=== PATIENT | female | born 1945 | race Two or more races ===

== ENCOUNTER 2020-07-01 12:01 | Outpatient (CLI) | payer OTHER ==
[~2020-07-01] VITALS: Ht 157.5 cm; Wt 57.2 kg
[2020-07-01] MEDS ORDERED: LOSARTAN POTASS25 MG (12:05)
[2020-07-01] MEDS ORDERED: PLAVIX75 MG (12:06)
[2020-07-01] MEDS ORDERED: AMLODIPINE BESYL5 MG (12:06)
[2020-07-01] MEDS ORDERED: ROSUVASTATIN CAL5 MG (12:06)
[2020-07-01] MEDS ORDERED: IBANDRONATE SO150 MG (12:07)
[2020-07-05] MEDS ORDERED: CRESTOR20 MG PO (09:26)
[2020-07-05] MEDS ORDERED: OMEPRA PO (09:26)
[2020-07-05] MEDS ORDERED: FAM PO (09:27)
== END 2020-07-01 18:59 | disposition home or self-care (01) ==
LOC: OFIC 805 12:01
PROVIDERS: ATTEND Otolaryngology
DX: R49.0 Dysphonia (principal); J38.1 Polyp of vocal cord and larynx

== ENCOUNTER 2020-07-12 05:36 | Day surgery (SDC) | payer OTHER ==
[~2020-07-12 05:36] MED LIST: AMLODIPINE BESYL5 MG; CRESTOR20 MG PO; FAM PO; IBANDRONATE SO150 MG; LOSARTAN POTASS25 MG; OMEPRA PO; PLAVIX75 MG; ROSUVASTATIN CAL5 MG
== END 2020-07-12 11:45 | disposition home or self-care (01) ==
LOC: CIR.AMB 05:36
PROVIDERS: ATTEND Otolaryngology
DX: D02.0 Carcinoma in situ of larynx (principal); J38.3 Other diseases of vocal cords; Z20.828 Contact with and (suspected) exposure to other viral communicable diseases

== ENCOUNTER 2020-07-21 15:43 | Outpatient (CLI) | payer OTHER | END 2020-07-21 16:16 | disposition home or self-care (01) | LOC: OFIC 805 15:43 | PROVIDERS: ATTEND Otolaryngology | DX: J38.1 Polyp of vocal cord and larynx (principal); R49.0 Dysphonia; C32.8 Malignant neoplasm of overlapping sites of larynx ==

== ENCOUNTER 2020-08-02 07:24 | Outpatient (CLI) | payer OTHER | END 2020-08-02 10:08 | disposition home or self-care (01) | LOC: NUCLEAR 07:24 | PROVIDERS: ATTEND Otolaryngology | DX: C32.8 Malignant neoplasm of overlapping sites of larynx (principal) | CPT/HCPCS: 78815; A9552 ==

== ENCOUNTER → 2020-08-11 | Outpatient (CLI) | payer OTHER | END | disposition home or self-care (01) | LOC: OFIC 805 15:29 | PROVIDERS: ATTEND Otolaryngology | DX: R49.0 Dysphonia (principal); C32.8 Malignant neoplasm of overlapping sites of larynx ==

== ENCOUNTER 2020-09-09 15:51 | Outpatient (CLI) | payer OTHER | END 2020-09-09 16:00 | disposition home or self-care (01) | LOC: OFIC 805 15:51 | PROVIDERS: ATTEND Otolaryngology | DX: R49.0 Dysphonia (principal); C32.8 Malignant neoplasm of overlapping sites of larynx ==

== ENCOUNTER 2020-09-20 08:32 | Outpatient (CLI) | payer OTHER | END 2020-09-20 08:39 | disposition home or self-care (01) | LOC: SONOGRAMA 08:32 | PROVIDERS: ATTEND Otolaryngology | DX: E04.1 Nontoxic single thyroid nodule (principal) ==

== ENCOUNTER → 2020-09-23 | Outpatient (CLI) | payer OTHER | END | disposition home or self-care (01) | LOC: OFIC 805 14:21 | PROVIDERS: ATTEND Otolaryngology | DX: D02.0 Carcinoma in situ of larynx (principal); R49.0 Dysphonia; J38.1 Polyp of vocal cord and larynx ==

== ENCOUNTER → 2020-09-28 | Outpatient (CLI) | payer OTHER | END | disposition home or self-care (01) | LOC: OFIC 805 15:36 | PROVIDERS: ATTEND Otolaryngology | DX: D02.0 Carcinoma in situ of larynx (principal); R49.0 Dysphonia ==

== ENCOUNTER 2021-07-27 08:05 | Outpatient (CLI) | payer OTHER | END 2021-07-27 08:11 | disposition home or self-care (01) | LOC: PPH VACUNA 08:05 | PROVIDERS: ATTEND Emergency Medicine Pediatric Emergency Medicine | DX: Z23 Encounter for immunization (principal) ==

== ENCOUNTER 2022-04-02 09:34 | Emergency (ER) | payer OTHER ==
[~2022-04-02] VITALS: Ht 157.5 cm; Wt 59.0 kg
[2022-04-02] MEDS ORDERED: OMEPRAZOLE20 MG PO (09:54)
== END 2022-04-02 11:32 | disposition home or self-care (01) ==
LOC: ER 09:34
DX: S60.021A Contusion of right index finger without damage to nail, initial encounter (principal); W45.0XXA Nail entering through skin, initial encounter; Y93.9 Activity, unspecified; Y92.9 Unspecified place or not applicable; Z88.6 Allergy status to analgesic agent

== ENCOUNTER 2022-10-26 18:11 | Emergency (ER) | payer OTHER ==
[~2022-10-26] VITALS: Ht 162.6 cm; Wt 77.1 kg
[~2022-10-26 18:11] MED LIST changes: +OMEPRAZOLE20 MG PO
== END 2022-10-26 21:35 | disposition home or self-care (01) ==
LOC: ER 18:11
DX: U07.1 COVID-19 (principal); Z88.6 Allergy status to analgesic agent

== ENCOUNTER 2024-01-20 11:00 | Emergency (ER) | payer OTHER ==
[~2024-01-20] VITALS: Ht 160 cm; Wt 58.1 kg
[2024-01-20 13:07] LABS: HEMOGLOBIN 13.3 g/dL (12.0-15.00); MEAN CORPUSCULAR HEMOGLOBIN 31.5 pg (27.00-32.0); MEAN CORPUSCULAR HGB CONC 34.2 g/dl (32.0-36.0); PLATELET COUNT 276 K/uL (150-450); RED BLOOD COUNT 4.24 M/uL (4.00-6.00); RED CELL DISTRIBUTION WIDTH 13.5 % (11.5-14.5)
[2024-01-20 13:17] LABS: ERYTHROCYTE SEDIMENTATION RATE 22 mm/hr
[2024-01-20 13:32] LABS: CALCIUM 9.6 mg/dL (8.5-10.1); CREATININE SERUM 0.85 mg/dL (0.55-1.02); GFR 64.68; POTASSIUM 4.49 mEq/L (3.5-5.1)
[2024-01-20] MEDS ORDERED: CEFTRIAXONE SODIUM 1,000 MG VIAL IM STA (13:47)
[2024-01-20] MEDS ORDERED: DEXAMETHASONE SODIUM PHOSPHATE 4 MG/ML VIAL IM STA (13:49)
== END 2024-01-20 14:03 | disposition home or self-care (01) ==
LOC: ER 11:00
PROVIDERS: General Practice
DX: M25.472 Effusion, left ankle (principal); M25.572 Pain in left ankle and joints of left foot; R60.0 Localized edema; Z88.6 Allergy status to analgesic agent
CPT/HCPCS: 36415; 96372; 99282; J0696; J1100

== ENCOUNTER 2024-05-30 14:54 | Emergency (ER) | payer OTHER ==
[~2024-05-30] VITALS: Ht 157.5 cm; Wt 57.2 kg
[2024-05-30] MEDS ORDERED: GUAIFENESIN/DEXTROMETHORPHAN 10ML BLIST.PACK PO ONE (16:30)
[2024-05-30] MEDS ORDERED: LACTOBACILLUS ACIDOPHILUS 1 CAP CAP PO ONE (16:30)
[2024-05-30] MEDS ORDERED: FAMOTIDINE/PF 20 MG/2 ML VIAL IV PUSH ONE (16:45)
[2024-05-30] MEDS ORDERED: ACETAMINOPHEN 500 MG GEL..CAP PO ONE (16:45)
[2024-05-30] MEDS ORDERED: INTESTINEX680 M1 PO (16:47)
[2024-05-30] MEDS ORDERED: PAXLOVID 300-11 EAC1 PO (16:47)
[2024-05-30] MEDS ORDERED: PEPCID AC20 MG PO (16:47)
[2024-05-30] MEDS ORDERED: TUSSIN DM LIQU118 ML PO (16:47)
== END 2024-05-30 17:25 ==
LOC: ER 14:55
DX: U07.1 COVID-19 (principal); Z85.21 Personal history of malignant neoplasm of larynx; Z88.6 Allergy status to analgesic agent; I10 Essential (primary) hypertension; E78.49 Other hyperlipidemia
CPT/HCPCS: 96365; 99282; J3490

== ENCOUNTER 2025-05-11 09:15 | Outpatient (CLI) | payer OTHER ==
[~2025-05-11 09:15] MED LIST changes: +INTESTINEX680 M1 PO; +PAXLOVID 300-11 EAC1 PO; +PEPCID AC20 MG PO; +TUSSIN DM LIQU118 ML PO
== END 2025-05-11 09:24 | disposition home or self-care (01) ==
LOC: SONOGRAMA 09:15
DX: M75.111 Incomplete rotator cuff tear or rupture of right shoulder, not specified as traumatic (principal)

== ENCOUNTER 2025-05-19 06:55 | Outpatient (CLI) | payer OTHER | END 2025-05-19 07:00 | disposition home or self-care (01) | LOC: MRI 06:55 | PROVIDERS: ATTEND Orthopaedic Surgery | DX: M75.121 Complete rotator cuff tear or rupture of right shoulder, not specified as traumatic (principal) | CPT/HCPCS: 73221 ==